=== PATIENT | male | born 1995 | race Caucasian/White ===

== ENCOUNTER → 2021-01-22 00:29 | Outpatient (CLI) | payer OTHER, SELFPAY ==
[2021-01-22 18:14] LABS: SARS-CoV-2 RNA PCR Negative
== END ==
PROVIDERS: PCP Family Medicine; Visit Provider Nurse Practitioner Family
DX: R05.9 Cough, unspecified (principal); Z20.822 Contact with and (suspected) exposure to COVID-19
CPT/HCPCS: C9803; U0003; U0005

== ENCOUNTER 2023-04-30 10:00 | Emergency (ER) | payer OTHER, SELFPAY ==
[2023-04-30] VITALS (8 sets, daily range): BP systolic 146–160; BP diastolic 87–103; PULSE 84–100; RESP 16–18; TEMP 36.6–36.7; O2SAT 99–100
--- NOTE | ~2023-04-30 | CT_ITS ---
EXAMINATION: CT brain wo con DATE: 04/30/2023 13:19 INDICATION: Dizziness. Numbness in the extremities. TECHNIQUE: Computed tomography (CT) of the head was performed without intravenous contrast. The mA wa s adjusted according to patient size. Iterative reconstruction technique was employed. The dose-lengt h product was 605.33 mGy-cm. COMPARISON: Head CT 03/28/2004 FINDINGS: There is no intracranial hemorrhage, acute infarction, or abnormal intracranial mass lesion . The ventricles are normal in size. The orbits are normal. There is mild mucosal thickening in the p aranasal sinuses. The mastoid air cells are normal. IMPRESSION: 1. Normal brain. Reviewed, dictated and finalized at location A. [employer]PECTOR IMPRESSION: 1. Normal brain.
--- NOTE | 2023-04-30 12:56 | ED.NEUROSD ---
HPI - Neuro Symptoms/Deficit General Chief Complaint: Unspecified <NIMCO Best Last Filed: 04/30/23 13:12> Stated Complaint: numbness to extremities for days,feels weak <Mary Beth Miller PA-C - Last Filed: 04/30/23 13:12> Time Seen by Provider: 04/30/23 12:56 <NIMCO Best Last Filed: 04/30/23 13:12> Focused HPI: Patient is a 27-year-old male who presents the ED with paresthesias in his extremities. Patient reports having numbness, tingling, pins and needle sensation in his bilateral hands and feet since . States it has been constant since then. Today, he also noticed having a numbness sensation in his tongue. He also reports having intermittent fatigue over the last couple of days, as well as dizziness/lightheadedness. Denies focal weakness, slurred speech, confusion, vision changes, headache, chest pain, difficulty breathing, syncope. GENERAL: Well-appearing, well-nourished, and in no acute distress. HEAD: Normocephalic, atraumatic. EYES: PERRL/EOMI, no nystagmus. Conjunctiva clear. CHEST: Clear to auscultation. ?No respiratory distress. HEART: Regular rate and rhythm.? NEURO: ?Alert and oriented x3. Strength 5/5 in upper and lower extremities bilaterally. Equal market president strength bilaterally. No pronator drift. Equal [id number] testing bilaterally. Patient screened in triage and initial orders placed.? ?Additional care and disposition to be based upon?diagnostic testing and treatment. <NIMCO Best Last Filed: 04/30/23 13:12> Source: patient <NIMCO Best Last Filed: 04/30/23 13:12> Mode of arrival: ambulatory <NIMCO Best Last Filed: 04/30/23 13:12> Limitations: no limitations <NIMCO Best Last Filed: 04/30/23 13:12> Related Data Allergies/Adverse Reactions: Allergies Allergy/AdvReac Type Severity Reaction Status Date / Time No Known Allergies Allergy Verified 06/01/16 18:49 <Mary Beth Miller PA-C - Last Filed: 04/30/23 13:12> Review of Systems Review of Systems: All systems reviewed & are unremarkable except as noted in HPI and below <Marcia Dunn MD - Last Filed: 04/30/23 21:25> Exam Narrative: GENERAL: Well-appearing, well-nourished, and in no acute distress. HEAD: Normocephalic, atraumatic. EYES: PERRLA and EOMI. ENT: Grossly unremarkable NECK: Supple. CHEST: No respiratory distress. HEART: Regular rate and rhythm EXTREMITIES: Normal range of motion. No edema. SKIN: Warm, dry, no rash. NEURO: No focal deficits. Alert and oriented x3. 5/5 strength in all extremities, no sensory deficits, no pronator drift, [id number] intact, no aphasia or dysarthria, no facial droop PSYCH: Normal mood and affect. <Marcia Dunn MD - Last Filed: 04/30/23 21:25> Course Vital Signs Vital signs: Vital Signs Temperature 98.0 F 04/30/23 10:02 Pulse Rate 100 04/30/23 10:02 Respiratory Rate 16 04/30/23 10:02 Blood Pressure 150/103 H 04/30/23 10:02 Pulse Oximetry 99 04/30/23 10:02 Oxygen Delivery Room Air 04/30/23 10:02 Temperature 97.9 F 04/30/23 18:19 Pulse Rate 88 04/30/23 18:19 Respiratory Rate 18 04/30/23 18:19 Blood Pressure 148/88 H 04/30/23 18:19 Pulse Oximetry 100 04/30/23 18:19 Oxygen Delivery Room Air 04/30/23 10:02 <Mary Beth Miller PA-C - Last Filed: 04/30/23 13:12> Vital Signs Temperature 98.0 F 04/30/23 10:02 Pulse Rate 100 04/30/23 10:02 Respiratory Rate 16 04/30/23 10:02 Blood Pressure 150/103 H 04/30/23 10:02 Pulse Oximetry 99 04/30/23 10:02 Oxygen Delivery Room Air 04/30/23 10:02 Temperature 97.9 F 04/30/23 18:19 Pulse Rate 88 04/30/23 18:19 Respiratory Rate 18 04/30/23 18:19 Blood Pressure 148/88 H 04/30/23 18:19 Pulse Oximetry 100 04/30/23 18:19 Oxygen Delivery Room Air 04/30/23 10:02 Nikko Thompson
[2023-04-30 13:14] LABS: Basophils Absolute Auto 0.1 K/mm3 (0.0-0.1); Basophils Percent Auto 0.7 % (0.2-1.2); Eosinophils Absolute Auto 0.1 K/mm3 (0-0.3); Eosinophils Percent Auto 0.7 % (0-4.4); Hemoglobin 16.9 g/dL (14.0-18.0); Immature Granulocyte Absolute 0.07 K/mm3 (0.00-0.031); Immature Granulocyte Percent A 0.7 % (0-0.5); Lymphocytes Percent Auto 19.6 % (18.3-44.2); Mean Corpuscular HGB Conc 33.8 g/dl (32-36); Mean Corpuscular Hemoglobin 30.1 pg (26-34); Mean Platelet Volume 10.2 fl (7.4-10.4); Monocytes Absolute Auto 0.6 K/mm3 (0.1-0.6); Monocytes Percent Auto 5.2 % (2.6-8.5); Neutrophils Absolute Auto 7.8 K/mm3 (1.3-6.7); Neutrophils Percent Auto 73.1 % (45.5-73.1); Platelet Count Result 334 k/mm3 (150-375); Red Blood Count 5.62 M/mm3 (4.6-6.20); Red Cell Distribution Width 12.3 % (11.5-14.5); White Blood Count 10.7 K/mm3 (4.5-10.0)
[2023-04-30 13:24] LABS: Alanine Aminotransferase 74 U/L (6-50); Albumin Level 4.9 g/dL (3.5-5.1); Alkaline Phosphatase 62 U/L (38-126); Anion Gap 8 mmol/L (8-16); Aspartate Amino Transferase 41 U/L (17-59); Bilirubin,Total 0.7 mg/dL (0.2-1.3); Blood Urea Nitrogen 12 mg/dL (9-20); Calcium 9.5 mg/dL (8.4-10.2); Carbon Dioxide 26 mmol/L (22-30); Chloride 104 mmol/L (98-107); Estimated CRCL calculation 125 ml/min; Estimated Glomerular Filt Rate > 60; Glucose 99 mg/dL (65-110); Magnesium 2.3 mg/dL (1.6-2.3); Potassium 4.1 mmol/L (3.4-5.0); Sodium 138 mmol/L (137-145)
--- NOTE | 2023-04-30 15:35 | PC.NURSE ---
B/P elevated. B/P per manual cuff. Pt denies chest pain, shortness of breath. Denies treatment for HTN
== END 2023-04-30 18:21 | disposition home or self-care (01) ==
PROVIDERS: Physician Assistant; Emergency Provider Emergency Medicine; PCP Family Medicine
DX: R20.2 Paresthesia of skin (principal)
CPT/HCPCS: 36415; 70450; 80053; 83735; 84443; 85025; 99284